=== PATIENT | female | born 1990 | race American Indian/Alaskan Native ===

== ENCOUNTER 2018-12-09 20:49 | Inpatient (IN) | payer MEDICAID ==
[2018-12-09] MEDS ORDERED: CERVIDIL VG ONE (22:16)
[2018-12-09] MEDS: LACTATED RINGERS 1,000 ML IV SCH (22:55)
[2018-12-10] MEDS ORDERED: SUBLIMAZE IV PRN (04:58)
[2018-12-10 05:07] LABS: Hematocrit 35.6 % (30.3-42.9); Hemoglobin 11.8 gm/dl (10.1-14.3); Mean Corpuscular HGB Conc 33 % (30-34); Mean Corpuscular Volume 90 fl (79-97); Platelet Count 174 K/mm3 (140-440); Red Blood Count 3.96 M/mm3 (3.65-5.03); Red Cell Distribution Width 13.8 % (13.2-15.2)
[2018-12-10] MEDS: STADOL IV PRN ×2 (05:09→17:32)
[2018-12-10] MEDS: ZOFRAN IV PRN ×2 (07:23→21:03)
--- NOTE | 2018-12-10 07:53 | History and Physical Report ---
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 She received care at [facility] since 18 weeks and co-managed by [facility] and Cardiology for WPW syndrome. records are available and GBS is Positive. Past History Past Medical History: heart disease (WPW syndrome), diabetes (GDM on Glyburide) Past Surgical History: no surgical history Family/Genetic History: none Social history: no significant social history, single - Obstetrical History Expected Date of Delivery: 12/14/18 Actual Gestation: 39 Week(s) 3 Day(s) : 3 Medications and Allergies Allergies Allergy/AdvReac Type Severity Reaction Status Date / Time macadamia nut oil Allergy Anaphylaxis Verified 12/09/18 21:39 Home Medications Medication Instructions Recorded Confirmed Last Taken Type glyBURIDE [Diabeta] 2.5 tab PO QDAY 12/09/18 12/09/18 12/09/18 06:00 History 2.5 Active Meds: Active Medications Butorphanol Tartrate (Stadol) 2 mg IV Q2H PRN PRN Reason: Labor Pain Last Admin: 12/10/18 05:09 Dose: 2 mg Documented by: Fentanyl (Sublimaze) 100 mcg IV Q2H PRN PRN Reason: Labor Pain Glyburide (Diabeta) 2.5 mg PO QDAY@0600 ESTEBAN Lactated Ringer's (Lactated Ringers) 1,000 mls @ 125 mls/hr IV DIRECT ESTEBAN Last Admin: 12/09/18 22:55 Dose: 125 mls/hr Documented by: Ondansetron HCl (Zofran) 4 mg IV Q4H PRN PRN Reason: Nausea And Vomiting Last Admin: 12/10/18 07:23 Dose: 4 mg Documented by: Review of Systems All systems: negative - Vital Signs Vital signs: Vital Signs Temp Pulse Resp BP 98.4 F 90 18 108/59 12/09/18 21:21 12/09/18 21:21 12/09/18 21:21 12/09/18 21:21 Temp Pulse Resp BP Pulse Ox 97.5 F L 75 20 128/52 93 12/10/18 07:21 12/10/18 07:21 12/10/18 07:21 12/10/18 07:21 12/10/18 00:12 - Physical Exam Breasts: Positive: deferred Cardiovascular: Regular rate Lungs: Positive: Clear to auscultation Abdomen: Positive: normal appearance Genitourinary (Female): Positive: normal external genitalia Vagina: Positive: normal moisture Uterus: Positive: enlarged Extremities: Positive: normal - Obstetrical FHR: category 1 Uterine Contraction Monitor Mode: External Results Result Diagrams: 12/09/18 00:00 All other labs normal. Assessment and Plan - Patient Problems (1) 41 weeks gestation of Onset Date: 12/10/18 Current Visit: Yes Status: Acute Plan to address problem: A: IUP @ 39 3/7 weeks WPW syndrome GDM - controlled by Glyburide +GBS P: Admit to L&D for cervidil/pitocin induction of labor Monitor BS's and Cardiac symptoms IV Ampicillin (2) WPW (Txxnb-Sostdbnef-Kznyp syndrome) Onset Date: 12/10/18 Current Visit: Yes Status: Acute (3) GDM (gestational diabetes mellitus) Onset Date: 12/10/18 Current Visit: Yes Status: Acute Qualifiers: Gestational diabetes mellitus control: oral hypoglycemic-controlled Trimester: third trimester Qualified Code(s): O24.415 - Gestational diabetes mellitus in , controlled by oral hypoglycemic drugs
[2018-12-10] MEDS ORDERED: BRETHINE IVP PRN (08:00)
[2018-12-10] MEDS ORDERED: MINERAL OIL PO PRN (08:00)
[2018-12-10] MEDS ORDERED: LACTATED RINGERS 1,000 ML IV SCH ×2 (08:00→22:00)
[2018-12-10] MEDS ORDERED: PITOCin/NS 20 UNIT/1000ML DRIP 20 UNITS/1,000 ML BAG IV SCH ×3 (08:00→23:00)
[2018-12-10] MEDS ORDERED: PITOCin/NS 30 UNIT/500ML 30 UNITS/500 ML BAG IV SCH ×2 (08:00)
[2018-12-10] MEDS ORDERED: XYLOCAINE 2% INFILTRATI NR (08:00)
[2018-12-10] MEDS ORDERED: BRETHINE SUB-Q PRN (08:00)
[2018-12-10] MEDS: DIABETA PO SCH (09:18)
[2018-12-10] MEDS ORDERED: AMPICILLIN/NS 2 GM/100 ML 2 GM/100 ML BAG IV ONE (12:09)
[2018-12-10] MEDS: LACTATED RINGERS 1,000 ML IV SCH ×2 (12:20→20:10)
[2018-12-10] MEDS: AMPICILLIN/NS 1 GM/50 ML 1 GM/50 ML BAG IV SCH ×2 (16:11→20:10)
[2018-12-10] MEDS ORDERED: XYLOCAINE 2%/ EPI 1:200,000 INFILTRATI ONE (19:28)
[2018-12-10] MEDS ORDERED: NARCAN 2 MG/2 ML IV PRN (19:34)
--- NOTE | 2018-12-10 19:36 | Anesthesia Day of Surgery ---
Anesthesia Day of Surgery - Day of Surgery Patient Examined: Yes Patient H&P Reviewed: Yes Patient is NPO: Yes Beta Blockers: No Cardiac Clearance: No Pulmonary Clearance: No Julio's Test: N/A
--- NOTE | 2018-12-10 19:36 | Anesthesia Consultation ---
Anesthesia Consult and Med Hx - Airway Anesthetic Teeth Evaluation: Good ROM Head & Neck: Adequate Mental/Hyoid Distance: Adequate Mallampati Class: Class I Intubation Access Assessment: Good - Pulmonary Exam CTA: Yes - Cardiac Exam Cardiac Exam: RRR - Pre-Operative Health Status ASA Pre-Surgery Classification: ASA3 Proposed Anesthetic Plan: Epidural - Pulmonary Hx Smoking: No Hx Asthma: No COPD: No Hx Pneumonia: No - Cardiovascular System Hx Hypertension: No - Central Nervous System Hx Seizures: No Hx Psychiatric Problems: No - Endocrine Hx Renal Disease: No Hx End Stage Renal Disease: No Hx Hypothyroidism: No Hx Hyperthyroidism: No - Hematic Hx Anemia: No Hx Sickle Cell Disease: No - Other Systems Hx Alcohol Use: No
[2018-12-10] MEDS ORDERED: fentaNYL-BUPIV 2 MCG/ML-0.125% 200 MCG/100 ML BAG EPIDURAL SCH (20:00)
[2018-12-10] MEDS ORDERED: NACL 0.9% 1000 ML 1,000 ML ONE ×2 (20:41→22:40)
[2018-12-10] MEDS ORDERED: PEPCID IV ONE ×2 (21:02→21:16)
[2018-12-10] MEDS ORDERED: REGLAN ONE (21:02)
[2018-12-10] MEDS ORDERED: BICITRA ONE (21:02)
[2018-12-10] MEDS ORDERED: BICITRA PO ONE (21:16)
[2018-12-10] MEDS ORDERED: REGLAN IV ONE (21:16)
[2018-12-10] MEDS ORDERED: NEO SYNEPHRINE ONE (21:37)
[2018-12-10] MEDS ORDERED: NACL 0.9% IR ONE (21:46)
[2018-12-10] MEDS ORDERED: WATER FOR IRRIG STERILE IR ONE (21:46)
[2018-12-10] MEDS ORDERED: ASTRAMORPH PF 10MG/10ML ONE (21:52)
[2018-12-10] MEDS ORDERED: ANCEF/STERILE WATER 2 GM/20 ML 2 GM/20 ML SYRINGE IV NR (22:00)
--- NOTE | 2018-12-10 22:23 | Operative Report ---
Operative Report Operative Report: Date of procedure: 12/10/2018 Pre-operative diagnosis: 1. Intrauterine at 39-3/7 weeks 2. Armando -Parkinson-White syndrome 3. Gestational diabetes mellitus 4. Non- reassuring surveillance Post-operative diagnosis: Same Procedure name(s): Primary low transverse section Surgeon: Jorge Gaitan MD Drill Sharpener Operator: None Anesthesia: Epidural anesthesia by Dr. Ledbetter EBL: 400 mL Findings: A 3857 g male infant Apgars 8 at 1 minute and 9 at 5 minutes. Clear amniotic fluid. Normal uterus. Normal tubes and ovaries bilaterally. Procedure: After the patient was prepped and draped in usual sterile fashion, and after satisfactory level of epidural anesthesia was obtained, the skin knife was used to make a transverse skin incision. The incision was excised down to layer of the fascia, which was nicked in the midline and extended laterally using the Bovie cautery. The rectus muscles were dissected off the rectus fascia both superiorly and inferiorly. The rectus bellies in the midline, and the peritoneum was entered under direct visualization. The peritoneal incision was extended superiorly and inferiorly. A bladder flap was created and the bladder blade was then placed. The uterus was scored in a curvilinear linear fashion, entered in the midline revealing clear amniotic fluid. The infant's head was delivered onto the surgical field, and the oropharynx and nasopharynx were bulb suctioned. The rest of the infant's body was delivered, cord was doubly clamped and cut and the was handed to the waiting respiratory team. The placenta was manually removed from the uterus, and the uterus removed from its normal anatomical position. After gentle uterine lavage, the incision was inspected and found to be without extensions. It was then closed in 2 layers using 0 Vicryl suture in a running interlocking fashion, the second layer imbricating the first. After good hemostasis was achieved, copious amounts or irrigation was performed, and the gutters were suctioned free of blood and blood clots. Tisseel sealant was sprayed across the uterine incision. The uterus was then returned to its normal anatomical position, and after excellent hemostasis assured, the peritoneum was re- approximated using 3-0 Vicryl suture in a running interlocking fashion, and then the rectus muscles were re-approximated using 3-0 Vicryl suture in a [id number]-[id number] configuration. The fascia was then re-approximated using 0 Vicryl suture in running interlocking fashion. The subcutaneous layer was made hemostatic using Bovie cautery, the Tisseel sealant was sprayed across the fascial incision and the skin edges re-approximated using 4-0 Vicryl suture in a sub-cuticular fashion. Patient tolerated the procedure well was transported to recovery in stable condition.
[2018-12-10] MEDS ORDERED: NORCO 5/325 PO PRN (22:30)
[2018-12-10] MEDS ORDERED: TORADOL IV PRN (22:30)
[2018-12-10] MEDS ORDERED: PHENERGAN PR PRN ×2 (22:30→22:34)
[2018-12-10] MEDS ORDERED: NARCAN 0.4 MG/1 ML IV PRN ×2 (22:30→22:34)
[2018-12-10] MEDS ORDERED: TYLENOL PO PRN (22:30)
[2018-12-10] MEDS ORDERED: MILK OF MAGNESIA PO PRN (22:30)
[2018-12-10] MEDS ORDERED: TUCKS PAD TP PRN (22:30)
[2018-12-10] MEDS ORDERED: LANSINOH TP PRN (22:30)
[2018-12-10] MEDS ORDERED: PERCOCET 5/325 PO PRN (22:30)
[2018-12-10] MEDS ORDERED: MYLICON PO PRN (22:30)
[2018-12-10] MEDS ORDERED: DILAUDID IV PRN (22:34)
[2018-12-10] MEDS ORDERED: PHENERGAN PO PRN (22:34)
[2018-12-10] MEDS ORDERED: ZOFRAN IV PRN (22:34)
[2018-12-10] MEDS ORDERED: NUBAIN IV PRN (22:34)
--- NOTE | 2018-12-10 22:41 | Post Anesthesia Evaluation ---
- Post Anesthesia Evaluation Patient Participated: Yes Airway Patent: Yes Stable Respiratory Function: Yes Nausea/Vomiting: No Temp > 96.8F: Yes Pain Manageable: Yes Adequeate Hydration: Yes Block Receding Appropriately: Yes Patient on Ventilator: No
[2018-12-10] MEDS ORDERED: D5LR 1,000 ML IV SCH (23:00)
[2018-12-10] MEDS ORDERED: SODIUM CHLORIDE FLUSH SYRINGE 10 ML IV NR ×2 (23:00)
[2018-12-10] MEDS ORDERED: D50W (25GM) Syringe IV PRN (23:53)
[2018-12-11] MEDS: ZOFRAN IV PRN ×2 (00:58→08:44)
[2018-12-11] MEDS: ANCEF/NS 1 GM/50 ML 1 GM/50 ML BAG IV SCH ×2 (05:33→14:51)
[2018-12-11] MEDS ORDERED: M-M-R II VACCINE SUB-Q ONE (06:00)
[2018-12-11] MEDS ORDERED: BOOSTRIX IM ONE (06:00)
[2018-12-11] MEDS: HumuLIN R SUB-Q SCH ×4 (08:29→22:51)
[2018-12-11] MEDS: DIABETA PO SCH (08:42)
--- NOTE | 2018-12-11 08:45 | Progress Note ---
Assessment and Plan - Patient Problems (1) 41 weeks gestation of Onset Date: 12/10/18 Current Visit: Yes Status: Resolved (2) WPW (Dbzfg-Taxaeuzuq-Qtrle syndrome) Onset Date: 12/10/18 Current Visit: Yes Status: Resolved (3) GDM (gestational diabetes mellitus) Onset Date: 12/10/18 Current Visit: Yes Status: Acute Qualifiers: Gestational diabetes mellitus control: oral hypoglycemic-controlled Trimester: third trimester Qualified Code(s): O24.415 - Gestational diabetes mellitus in , controlled by oral hypoglycemic drugs (4) Status post section Onset Date: 12/11/18 Current Visit: Yes Status: Resolved Plan to address problem: A: S/P C Section - POD #1 Doing well WPW syndrome - stable GDM - stable P: Continue RPOC Anticipate discharge in 24-48hrs Subjective - Subjective Date of service: 12/11/18 Principal diagnosis: s/p C Section - POD #1 Interval history: Pt is feeling well without complaints. Bleeding improved. Denies chest pains. Patient reports: appetite normal, voiding normally, pain well controlled, nauseated, no dizzy ambulation, no flatus, no ambulating normally Rudyard: doing well, bottle feeding Objective - Vital Signs Latest vital signs: Vital Signs Temp Pulse Resp BP BP Pulse Ox 12/11/18 04:20 98.4 F 96 H 20 95/55 12/11/18 00:00 98.9 F 70 100/52 12/10/18 23:35 98.5 F 94 H 28 H 112/55 97 12/10/18 23:20 86 16 115/56 98 12/10/18 23:05 79 14 117/59 99 12/10/18 22:50 77 14 102/66 99 12/10/18 22:45 91 H 18 104/57 98 12/10/18 22:40 72 19 100/56 98 12/10/18 22:35 98.3 F 77 13 83/56 96 12/10/18 21:23 94 H 98 12/10/18 21:18 71 99 12/10/18 21:13 68 127/70 99 12/10/18 21:08 63 98 12/10/18 21:03 66 98 12/10/18 20:58 87 99 12/10/18 20:57 64 136/65 12/10/18 20:53 71 100 12/10/18 20:48 76 98 12/10/18 20:43 69 136/64 98 12/10/18 20:38 67 99 12/10/18 20:33 80 98 12/10/18 20:29 67 148/72 12/10/18 20:28 65 92 12/10/18 20:23 116 H 99 12/10/18 20:22 73 150/82 12/10/18 20:18 63 100 12/10/18 20:13 59 L 99 12/10/18 20:10 91 H 128/59 12/10/18 20:08 83 100 12/10/18 20:06 90 142/60 12/10/18 20:03 95 H 99 12/10/18 20:02 74 170/73 12/10/18 20:00 66 151/74 12/10/18 19:58 78 98 12/10/18 19:57 110 H 104/59 12/10/18 19:54 66 106/57 12/10/18 19:53 67 96 12/10/18 19:49 85 100/58 12/10/18 19:48 76 97 12/10/18 19:45 74 116/56 12/10/18 19:43 75 94 12/10/18 19:42 71 93 12/10/18 19:41 66 116/56 12/10/18 19:38 82 97 12/10/18 19:37 92 H 125/55 12/10/18 19:33 79 119/65 95 12/10/18 19:29 89 115/68 12/10/18 19:28 82 95 12/10/18 19:27 80 94 12/10/18 19:25 79 117/66 12/10/18 19:23 95 H 97 12/10/18 19:22 98.3 F 12/10/18 19:21 77 116/58 93 12/10/18 19:18 76 130/58 97 12/10/18 19:13 84 106/58 90 12/10/18 19:12 79 94 12/10/18 19:09 68 107/53 12/10/18 19:08 73 96 12/10/18 19:06 65 112/56 90 12/10/18 19:03 70 95 12/10/18 19:00 65 91 12/10/18 18:58 75 98 12/10/18 18:54 81 93 12/10/18 18:53 94 H 99 12/10/18 18:47 69 90 12/10/18 18:42 73 97 12/10/18 18:00 67 104/55 12/10/18 17:33 85 140/69 12/10/18 17:02 72 118/62 12/10/18 16:31 80 112/63 12/10/18 16:00 74 107/56 12/10/18 15:30 76 108/66 12/10/18 15:00 73 86/49 12/10/18 14:30 83 99/64 12/10/18 14:00 98.6 F 81 20 98/57 12/10/18 13:30 84 92/52 12/10/18 13:01 83 86/51 12/10/18 12:30 87 85/52 Intake and Output 12/10/18 12/11/18 12/11/18 22:59 06:59 14:59 Intake Total 2047.200 1240 Output Total 1250 Balance 2047.200 -10 Intake: IV 2047.200 1000 AMPICILLIN/NS 1 GM/50 ML 50 1 gm In 50 ml @ 100 mls/ hr IV Q4HR [facility] Rx#: [id number] Lactated Ringers 1,000 ml 979.167 @ 125 mls/hr IV DIRECT [facility] Rx#:[id number] PITOCin/NS 30 UNIT/500ML 18.033 30 units In 500 ml @ 1 MILLIUNITS/MIN 1 mls/hr IV TITR [facility] Rx#:[id number] Oral 240 Output: Urine 1250 Indwelling Catheter 800 Other: Total, Intake Amount 240 Total, Output Amount 800 Estimated Blood Loss 400 - Exam Cardiovascular: Present: Regular rate Lungs: Present: Clear to auscultation Abdomen: Present: normal appearance, soft Uterus: Present: normal, firm, fundal height below umbilicus Extremities: Present: normal Incision: Present: normal, dry, intact, dressed - Labs Labs: Abnormal lab results 12/10/18 12/10/18 12/11/18 Range/Units 17:49 20:46 08:29 POC Glucose 51 L 65 L 148 H (70-105) Laboratory Tests 12/09/18 12/09/18 12/09/18 00:00 00:00 21:00 WBC 8.3 RBC 3.96 Hgb 11.8 Hct 35.6 MCV 90 MCH 30 MCHC 33 RDW 13.8 Plt Count 174 POC Glucose RPR Nonreactive Hep Bs Antigen Blood Type B POSITIVE Antibody Screen Negative 12/09/18 12/10/18 12/10/18 22:03 05:53 11:06 WBC RBC Hgb Hct MCV MCH MCHC RDW Plt Count POC Glucose 79 84 RPR Hep Bs Antigen Non-reactive Blood Type Antibody Screen 12/10/18 12/10/18 12/10/18 11:55 17:49 20:46 WBC RBC Hgb Hct MCV MCH MCHC RDW Plt Count POC Glucose 74 51 L 65 L RPR Hep Bs Antigen Blood Type Antibody Screen 12/10/18 12/11/18 12/11/18 22:46 08:29 09:10 WBC RBC Hgb 10.2 Hct 31.1 MCV MCH MCHC RDW Plt Count POC Glucose 86 148 H RPR Hep Bs Antigen Blood Type Antibody Screen 12/11/18 12/11/18 12/11/18 13:12 16:51 22:09 WBC RBC Hgb Hct MCV MCH MCHC RDW Plt Count POC Glucose 83 102 110 H RPR Hep Bs Antigen Blood Type Antibody Screen
[2018-12-11 09:49] LABS: Hematocrit 31.1 % (30.3-42.9); Hemoglobin 10.2 gm/dl (10.1-14.3)
[2018-12-11] MEDS: FEOSOL PO SCH (10:13)
[2018-12-11] MEDS: IBUPROFEN PO PRN (17:52)
[2018-12-11] MEDS ORDERED: BENADRYL PO PRN (19:53)
[2018-12-12] MEDS: HumuLIN R SUB-Q SCH ×3 (07:42→15:50)
[2018-12-12] MEDS: DIABETA PO SCH (07:42)
[2018-12-12] MEDS: FEOSOL PO SCH (09:50)
--- NOTE | 2018-12-12 11:20 | Progress Note ---
Assessment and Plan - Patient Problems (1) 41 weeks gestation of Onset Date: 12/10/18 Current Visit: Yes Status: Resolved (2) WPW (Oitwg-Szxidvjsv-Nnrkp syndrome) Onset Date: 12/10/18 Current Visit: Yes Status: Resolved (3) GDM (gestational diabetes mellitus) Onset Date: 12/10/18 Current Visit: Yes Status: Acute Qualifiers: Gestational diabetes mellitus control: oral hypoglycemic-controlled Trimester: third trimester Qualified Code(s): O24.415 - Gestational diabetes mellitus in , controlled by oral hypoglycemic drugs (4) Status post section Onset Date: 12/11/18 Current Visit: Yes Status: Resolved Plan to address problem: A: S/P C Section - POD #2 Doing well WPW syndrome - stable GDM - stable P: May go home today Subjective - Subjective Date of service: 12/12/18 Principal diagnosis: s/p C Section - POD #2 Interval history: Pt is feeling well without complaints. Denies chest pains, and tolerating a reg diet without nausea or voming, ambulating and voiding without difficulty. She wants to go home today. Patient reports: appetite normal, voiding normally, pain well controlled, flatus, ambulating normally, no dizzy ambulation, no nauseated : doing well, nursing well, bottle feeding Objective - Vital Signs Latest vital signs: Vital Signs Temp Pulse Resp BP BP Pulse Ox 12/12/18 07:45 99.3 F 77 18 113/53 96 12/12/18 05:41 20 12/12/18 00:46 98.2 F 80 18 104/50 12/11/18 20:45 98.8 F 85 18 105/50 12/11/18 15:33 99.0 F 88 18 109/59 98 12/11/18 12:33 97.6 F 74 18 104/60 96 Intake and Output 12/11/18 12/12/18 12/12/18 22:59 06:59 14:59 Intake Total 360 600 360 Balance 360 600 360 Intake: Oral 360 Intake, Free Water 600 360 Other: Total, Intake Amount 360 # Voids Void 1 1 - Exam Breasts: Present: deferred Abdomen: Present: normal appearance, soft Uterus: Present: normal, firm, fundal height below umbilicus Extremities: Present: normal Incision: Present: normal, dry, intact - Labs Labs: Abnormal lab results 12/11/18 Range/Units 22:09 POC Glucose 110 H (70-105)
--- NOTE | 2018-12-12 11:38 | Discharge Summary ---
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 She received cervidil and pitocin and progressed in labor until she developed a non-reassuring tracing requiring delivery by C Section. By POD #2 she was tolerating a reg diet without nausea or vomiting, ambulating and voiding without difficulty, and therefore discharged to home on POD #2 in stable condition. Condition at discharge: Good Disposition: DC-01 TO HOME OR SELFCARE - Discharge Diagnoses (1) 41 weeks gestation of Status: Resolved (2) WPW (Fgjvc-Bvhhszknp-Jabmb syndrome) Status: Resolved (3) GDM (gestational diabetes mellitus) Status: Chronic Qualifiers: Gestational diabetes mellitus control: oral hypoglycemic-controlled Trimester: third trimester Qualified Code(s): O24.415 - Gestational diabetes mellitus in , controlled by oral hypoglycemic drugs (4) Status post section Status: Resolved Plan - Discharge Medications Prescriptions: Ferrous Sulfate [Feosol 325 MG tab] 325 mg PO QDAY #60 tablet HYDROcodone/APAP 5-325 [[place] 5-325 mg TAB] 1 each PO Q6HR PRN #30 tablet PRN Reason: Pain, Moderate (4-6) Ibuprofen [Motrin 800 MG tab] 800 mg PO Q6H PRN #30 tablet PRN Reason: Pain, Mild (1-3) Pnv No.95/Ferrous Fum/Folic AC [Prenavite Tablet] 1 each PO DAILY #30 tablet - Provider Discharge Summary Activity: routine, no sex for 6 weeks, no heavy lifting 4 weeks, no strenuous exercise Diet: routine Instructions: routine Additional instructions: [] Smoking cessation referral if applicable(refer to patient education folder for contact #) [] Refer to [facility]'s [facility] Booklet Call your doctor immediately for: * Fever > 100.5 * Heavy vaginal bleeding ( >1 pad per hour) * Severe persistent headache * Shortness of breath * Reddened, hot, painful area to leg or breast * Drainage or odor from incision. * Keep incision clean and dry at all times and follow doctor's instructions regarding bathing/showering - Follow up plan Follow up: ENMANUEL HANSEN MD [Primary Care Provider] - 14 Days Forms: [facility] Discharge Summary
[2018-12-12] MEDS: IBUPROFEN PO PRN (11:48)
[2018-12-12 16:09] VITALS: BP 109/54
== END 2018-12-12 16:30 | disposition home or self-care (01) | DRG 766 ==
LOC: LD 20:49 → OB 12-11 00:50
PROVIDERS: ADMIT Obstetrics & Gynecology; ATTEND Obstetrics & Gynecology
PROC: 10D00Z1 Extraction of Products of Conception, Low, Open Approach (ICD-10-PCS; principal; 2018-12-10)
PROC: 3E0234Z Introduction of Serum, Toxoid and Vaccine into Muscle, Percutaneous Approach (ICD-10-PCS; 2018-12-11)
DX: O24.429 Gestational diabetes mellitus in childbirth, unspecified control (principal); I45.6 Pre-excitation syndrome; O76 Abnormality in fetal heart rate and rhythm complicating labor and delivery; O99.824 Streptococcus B carrier state complicating childbirth; Z37.0 Single live birth; Z23 Encounter for immunization; Z3A.41 41 weeks gestation of pregnancy
CPT/HCPCS: 36415; 82962; 85014; 85018; 85027; 86592; 86706; 86850; 86900; 86901; 93005; 93010; G0378; C9250; J0290; J0595; J0690; J1170; J2274; J2370; J2405; J2590; J2765; J7030; J7120; J7121; Q0169